=== PATIENT | female | born 1975 | race Asian ===

== ENCOUNTER 2016-11-29 02:16 | Emergency (ER) | payer SELFPAY ==
[2016-11-29 02:23] VITALS: BP 111/85
[2016-11-29] MEDS ORDERED: ONDANSETRON ODT 4 MG TAB (6 TAB/DSPK) PO PRN (03:06)
--- NOTE | 2016-11-29 03:10 | ER Document Report ---
ED General - General Chief Complaint: Breathing Difficulty Stated Complaint: DIFFICULTY BREATHING Notes: Patient is a pleasant 41-year-old female presents with multiple complaints. First complaint is that for the last 2-3 days she's had bodyaches, chills, congestion, and some cough. She's also had some nausea but has not vomited. No diarrhea. No chest pain. Mild headache. Tonight she woke up with sweats and therefore came to the ER. She took [id number] cough and cold medication which has not been helping. Patient's second complaint is that for the last 3 months she will occasionally get a numbness type sensation to the left side of her face and into her hair. She says it does not last long and always resolves when she drinks warm water. She does not have any associated weakness with this. She got this sensation again tonight but it has since resolved. Patient's third complaint is that she adamantly get some epigastric pain gets worse after eating. She has a burning type sensation a she with that. She says she took [id number] Nexium for one week which resolved her symptoms. She since stopped taking the Nexium and her symptoms have returned. She does not have a primary care doctor. She has not seen a doctor for some time. She denies any weakness or numbness and her extremities. No other complaints at this time. TRAVEL OUTSIDE OF THE [place] IN LAST 30 DAYS: No - Related Data Allergies/Adverse Reactions: No Known Allergies Allergy (Verified 11/26/14 12:04) Past Medical History - Social History Smoking Status: Never Smoker Frequency of alcohol use: None Drug Abuse: None Family History: Reviewed & Not Pertinent Patient has suicidal ideation: No Patient has homicidal ideation: No Renal/ Medical History: Denies: Hx Peritoneal Dialysis Past Surgical History: Reports: Hx Gynecologic Surgery - Immunizations Hx Diphtheria, Pertussis, Tetanus Vaccination: No Review of Systems - Review of Systems Notes: My Normal Review Basic REVIEW OF SYSTEMS: CONSTITUTIONAL : Chills and sweats at home. EENT: Nasal congestion CARDIOVASCULAR: Denies chest pain. RESPIRATORY: Cough GASTROINTESTINAL: Denies abdominal pain. Denies nausea, vomiting, or diarrhea. Denies constipation. Last BM: GENITOURINARY: Denies difficulty urinating, painful urination, burning, frequency, or blood in urine. MUSCULOSKELETAL: Denies neck or back pain or joint pain or swelling. SKIN: Denies rash or skin lesions. NEUROLOGICAL: Denies altered mental status or loss of consciousness. Mild headache. Denies weakness or paralysis or loss of use of either side. Denies problems with gait or speech. Denies motor loss. ALL OTHER SYSTEMS REVIEWED AND NEGATIVE. Physical Exam - Vital signs Vitals: Temp Pulse Resp BP Pulse Ox 97.9 F 76 18 111/85 99 11/29/16 02:20 11/29/16 02:20 11/29/16 02:20 11/29/16 02:20 11/29/16 02:20 - Notes Notes: General Appearance: Well nourished, alert, cooperative, no acute distress, no obvious discomfort. Well-appearing. Vitals: reviewed, See vital signs table. Head: no swelling or tenderness to the head Eyes: PERRL, EOMI, Conjuctiva clear Mouth: No decreasd moisture Throat: No tonsillar inflammation, No airway obstruction, No lymphadenopathy Neck: Supple, no neck tenderness, No thyromegaly Lungs: No wheezing, No rales, No rhonci, No accessory muscle use, good air exchange bilaterally. Heart: Normal rate, Regular rythm, No murmur, no rub Abdomen: Normal BS, soft, No rigidity, No abdominal tenderness, No guarding, no rebound, no abdominal masses, no organomegaly Extremities: strength 5/5 in all extremities, good pulses in all extremities, no swelling or tenderness in the extremities, no edema. Skin: warm, dry, appropriate color, no rash Neuro: speech clear, oriented x 3, normal affect, responds appropriately to questions. Cranial nerves II through XII are intact. Distal sensation intact. 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 She has good strength plantar and dorsiflexion of both feet. Distal sensation intact in all 4 upper extremities. Good coordination of movements. Course - Vital Signs Vital signs: Temp Pulse Resp BP Pulse Ox 97.9 F 76 18 111/85 99 11/29/16 02:20 11/29/16 02:20 11/29/16 02:20 11/29/16 02:20 11/29/16 02:20 - Transfer of Care Notes: 11/29/16 03:16 The patient is a patient has flulike symptoms most likely represents fluid and other viruses causing her bodyaches, chills, cough and congestion. Her lung meadows are completely clear. She has no tachypnea on exam. She is very well- appearing. I do not think she needs further workup for her URI type symptoms. As for the numbness in her face that resolved with warm water, I'm not exactly sure what could be causing such symptoms. She has no associated weakness with the symptoms. She says they're very brief and always resolve shortly after they start. She has no other strokelike symptoms. Her neurologic exam is completely normal. Patient's epigastric abdominal pain appears be related to gastritis or acid reflux being that is worse after eating and is a burning type sensation. It improves with Nexium. I encourage her to continue to take Nexium. She's had some nausea recently and therefore we'll give her Zofran. Encouraged to drink lots of liquids. She is 41 years old and does not follow with primary care doctor. I will give her a list of primary care doctor in area and encourage her to follow-up with them here to encourage her to follow up with her doctor next 3-4 days for reevaluation. Encouraged to return to ER immediately if she has any worsening of her symptoms, fevers, or any weakness in association with the numbness that she gets in her face. Patient and her family agree with plan and patient will be discharged home. Dictation of this chart was performed using voice recognition software; therefore, there may be some unintended grammatical errors. Discharge - Discharge Clinical Impression: Nausea, Paresthesia URI (upper respiratory infection) Qualifiers: URI type: unspecified URI Qualified Code(s): J06.9 - Acute upper respiratory infection, unspecified Condition: Good Disposition: HOME, SELF-CARE Instructions: Family Physicians / Practices Additional Instructions: Please follow up with a family doctor for reevaluation in 3-5 days and for continued management of your chronic medical problems. Please take the nexium daily. please take the zofran every 4 hours as needed for control of the nausea. Please drink plenty of noncaffeinated liquids. Please return to the ER immediately if oyu have recurrent vomiting, fevers, difficulty breathing, fast breathing, weakness of your face, or feel that you are worsening in any way. Prescriptions: Ondansetron [Zofran Odt 4 mg Tablet] 1 tab PO Q4H PRN #10 tab.rapdis PRN Reason: For Nausea/Vomiting Forms: Return to Work
== END 2016-11-29 03:35 | disposition home or self-care (01) ==
LOC: ER 02:16
DX: J06.9 Acute upper respiratory infection, unspecified (principal); R20.0 Anesthesia of skin; R10.13 Epigastric pain; R05 Cough; R09.81 Nasal congestion; R68.83 Chills (without fever); R51 Headache; R11.0 Nausea; R61 Generalized hyperhidrosis
CPT/HCPCS: 99284

== ENCOUNTER 2019-09-18 00:02 | Emergency (ER) | payer BC, OTHER ==
[2019-09-18 00:57] LABS: ABSOLUTE EOSINOPHILS # (AUTO) 0.2 10^3/uL (0.0-0.6); ABSOLUTE LYMPHOCYTES (AUTO) 1.8 10^3/uL (0.5-4.7); ABSOLUTE MONOCYTES (AUTO) 0.5 10^3/uL (0.1-1.4); ABSOLUTE NEUT (AUTO) 3.8 10^3/uL (1.7-8.2); BASOPHILS % (AUTO) 0.4 % (0-2); EOSINOPHILS % (AUTO) 2.4 % (0-6); HEMOGLOBIN 13.3 g/dL (12.0-15.5); MEAN CORPUSCULAR HEMOGLOBIN 31.8 pg (27.0-33.4); MEAN CORPUSCULAR HGB CONC 34.2 g/dL (32.0-36.0); MEAN CORPUSCULAR VOLUME 93 fl (80-97); MONOCYTES % (AUTO) 8.3 % (3-13); PLATELET COUNT 311 10^3/uL (150-450); RED CELL DISTRIBUTION WIDTH 13.4 % (11.5-14.0); SEGMENTED NEUTROPHILS % (AUTO) 59.9 % (42-78); TOTAL CELLS COUNTED % (AUTO) 100 %; WHITE BLOOD COUNT 6.3 10^3/uL (4.0-10.5)
[2019-09-18 01:10] LABS: ALBUMIN 4.2 g/dL (3.5-5.0); ALKALINE PHOSPHATASE 56 U/L (38-126); ANION GAP 9 (5-19); ASPARTATE AMINO TRANSFERASE 20 U/L (14-36); BILIRUBIN,TOTAL 0.2 mg/dL (0.2-1.3); BLOOD UREA NITROGEN 15 mg/dL (7-20); CALCIUM 9.1 mg/dL (8.4-10.2); CARBON DIOXIDE 25 mmol/L (22-30); CHLORIDE 105 mmol/L (98-107); CREATINE KINASE 90 U/L (30-135); GLUCOSE 103 mg/dL (75-110); POTASSIUM 3.6 mmol/L (3.6-5.0); TOTAL PROTEIN 7.9 g/dL (6.3-8.2)
[2019-09-18 01:16] LABS: APPEARANCE,URINE CLEAR; BILIRUBIN,URINE NEGATIVE (NEGATIVE); COLOR,URINE STRAW; GLUCOSE, URINE NEGATIVE (NEGATIVE); KETONES,URINE NEGATIVE (NEGATIVE); LEUKOCYTE ESTERASE,URINE TRACE (NEGATIVE); NITRITE,URINE NEGATIVE (NEGATIVE); PROTEIN,URINE NEGATIVE (NEGATIVE); URINE SPECIFIC GRAVITY 1.009; UROBILINOGEN,URINE NEGATIVE mg/dL (<2.0)
[2019-09-18] MEDS ORDERED: HYDROXYZINE PAMOATE 25 MG CAPSULE (4 CAP/ER DISP) PO PRN (04:07)
--- NOTE | 2019-09-18 04:11 | ER Document Report ---
ED General - General Chief Complaint: Vertigo Stated Complaint: COLD CHILLS DIZZY Time Seen by Provider: 09/18/19 03:48 Primary Care Provider: [facility] [Provider Group] - Follow up as needed ALECIA RIVERA MD [ACTIVE STAFF] - Follow up in 3-5 days Notes: Patient is a 44-year-old female that comes to the emergency department for chief complaint of an episode that happened prior to arrival after she went to bed where she felt like her heart was racing, she broke out into a sweat, she felt that she was shaking, she became lightheaded, her vision became blurry, and she felt like it was hard to breathe. She states this lasted for short while and then resolved. She states this happened a month ago as well. Patient denies any current symptoms, she denies any daily medications, she denies smoking, alco hol, recreational drugs. Her is at bedside. Patient is not diagnosed with any medical history. 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 TRAVEL OUTSIDE OF THE [place] IN LAST 30 DAYS: No - Related Data Allergies/Adverse Reactions: No Known Allergies Allergy (Verified 11/26/14 12:04) Home Medications: vit daily Past Medical History - General Information source: Patient, Relative - Social History Smoking Status: Never Smoker Chew tobacco use (# tins/day): No Frequency of alcohol use: None Lives with: Family Family History: Reviewed & Not Pertinent Patient has suicidal ideation: No Patient has homicidal ideation: No Renal/ Medical History: Denies: Hx Peritoneal Dialysis Past Surgical History: Reports: Hx Gynecologic Surgery - Immunizations Immunizations up to date: Yes Hx Diphtheria, Pertussis, Tetanus Vaccination: Yes Review of Systems - Review of Systems Constitutional: See HPI EENT: No symptoms reported Cardiovascular: See HPI Respiratory: No symptoms reported Gastrointestinal: No symptoms reported Genitourinary: No symptoms reported Female Genitourinary: No symptoms reported Musculoskeletal: No symptoms reported Skin: See HPI Hematologic/Lymphatic: No symptoms reported Neurological/Psychological: See HPI Physical Exam - Vital signs Vitals: Temp Pulse Resp BP Pulse Ox 98.2 F 92 20 109/77 100 09/18/19 00:10 09/18/19 00:10 09/18/19 00:10 09/18/19 00:10 09/18/19 00:10 - Notes Notes: GENERAL: Sleeping but easily aroused, no distress HEAD: Normocephalic, atraumatic. EYES: Pupils equal, round, and reactive to light. Extraocular movements intact. ENT: Oral mucosa moist, tongue midline. Oropharynx unremarkable. Airway patent. LUNGS: Clear to auscultation bilaterally, no wheezes, rales, or rhonchi. No re spiratory distress. HEART: Regular rate and rhythm. No murmur ABDOMEN: Soft, non-tender. Non-distended. Bowel sounds present in all 4 quadrants. GENITOURINARY: Deferred EXTREMITIES: Moves all 4 extremities spontaneously. No edema, normal radial and dorsalis pedis pulses bilaterally. No cyanosis. BACK: no cervical, thoracic, lumbar midline tenderness. No saddle anesthesia, normal distal neurovascular exam. Moves all extremities in full range of motion. NEUROLOGICAL: Alert and oriented x3. Normal speech. Cranial nerves II through XII grossly intact. PSYCH: Normal affect, normal mood. Conversational SKIN: Warm, dry, normal turgor. No rashes or lesions noted. Course - Re-evaluation Re-evalutation: On my evaluation patient was sleeping but easily aroused. She has no current symptoms. She states she has had symptoms similarly in the past, describes symptoms very suggestive of a panic attack. She did not have chest pain. EKG unremarkable, troponin negative, CBC, chemistry, urinalysis unremarkable. Vital signs unremarkable. No past medical history. Patient has been very stressed out with working too much recently. They are requesting to go home. I discussed different options. Patient is not suicidal, homicidal, or depressed. She states she simply needs more time off and she wants to have something available if she has episodes similar to tonight. She was provided with Vistaril, I did discuss that if symptoms worsened or did not resolve that she still needs to come in for evaluation, she also will need primary care follow-up and management. They state they will follow-up with referral provided. Stable at time of discharge. - Vital Signs Vital signs: Temp Pulse Resp BP Pulse Ox 98.4 F 95 16 100/59 L 97 09/18/19 04:23 09/18/19 04:23 09/18/19 04:23 09/18/19 04:23 09/18/19 04:23 - Laboratory Result Diagrams: 09/18/19 00:30 09/18/19 00:30 Laboratory results interpreted by me: 09/18/19 00:30 Urine Blood MODERATE H Ur Leukocyte Esterase TRACE H - EKG Interpretation by Me Additional EKG results interpreted by me: EKG sinus rhythm at a rate of 73, QTC of 419, normal axis, no T wave inversions or ST segment changes in consecutive leads. Discharge - Discharge Clinical Impression: Palpitations, Panic attack Condition: Stable Disposition: HOME, SELF-CARE Additional Instructions: Your evaluation and symptoms are most consistent with a panic attack. Your test s did not show any concerning findings at this time. I recommend that you take the Vistaril as prescribed only if needed for a panic attack episode. Please follow-up with the listed referral for additional evaluation and management. Return if you worsen including pain in your chest, passing out, fever, vomiting, or any other concerning or worsening symptoms. Prescriptions: Hydroxyzine Pamoate [Vistaril 25 mg Capsule] 1 - 2 cap PO Q6 PRN #30 capsule PRN Reason: Referrals: ALECIA RIVERA MD [ACTIVE STAFF] - Follow up in 3-5 days [facility] [Provider Group] - Follow up as needed
[2019-09-18 04:25] VITALS: BP 100/59
--- NOTE | 2019-09-18 13:10 | EKG REPORT ---
SEVERITY:- NORMAL ECG - SINUS RHYTHM : Confirmed by: Varsha Byrd MD 18-Sep-2019 13:09:41
== END 2019-09-18 04:23 | disposition home or self-care (01) ==
LOC: ER 00:02
DX: R00.2 Palpitations (principal); F41.0 Panic disorder [episodic paroxysmal anxiety]; R42 Dizziness and giddiness
CPT/HCPCS: 93005; 99285; 36415; 82550; 85025; 80053; 81001; 84484; 93010; J3490